=== PATIENT | female | born 1960 | race Caucasian/White ===

== ENCOUNTER → 2017-05-14 | Outpatient (CLI) | payer OTHER, MEDICARE | END | disposition home or self-care (01) | LOC: KCIC 15:36 | DX: J40 Bronchitis, not specified as acute or chronic (principal) | CPT/HCPCS: 71046 ==

== ENCOUNTER → 2018-04-24 | Outpatient (CLI) | payer OTHER, MEDICARE ==
--- NOTE | 2018-04-24 13:17 | KCIC ---
EXAM: Chest, 2 views. HISTORY: Cough. COMPARISON: 05/14/2017. FINDINGS: 2 views of the chest are obtained. There is no infiltrate, pleural effusion or pneumothorax. The heart is normal in size. IMPRESSION: No acute pulmonary finding. Electronically signed by: Rosita Crane MD (04/24/2018 1:13 PM) [facility]
== END | disposition home or self-care (01) ==
LOC: KCIC 12:49
DX: R05 Cough (principal); R06.00 Dyspnea, unspecified
CPT/HCPCS: 71046